=== PATIENT | male | born 1960 | race Two or more races ===

== ENCOUNTER 2020-03-15 06:15 | Day surgery (SDC) | payer OTHER ==
[~2020-03-15 06:15] MED LIST: COZAAR25 MG PO; GLIPIZIDE XL5 MG PO; METFORMIN HCL1000 M2 PO; TOPROL XL25 M1 PO
[2020-03-15] MEDS ORDERED: NEURONTIN600 M1 PO (10:40)
[2020-03-15] MEDS ORDERED: PERCOCET 5-3251 EACH PO (10:40)
[2020-03-15] MEDS ORDERED: COLACE100 MG PO (10:40)
== END 2020-03-15 12:15 | disposition home or self-care (01) ==
LOC: CIR.AMB 06:15
PROVIDERS: ATTEND Surgery
DX: K40.90 Unilateral inguinal hernia, without obstruction or gangrene, not specified as recurrent (principal); Z20.828 Contact with and (suspected) exposure to other viral communicable diseases